=== PATIENT | male | born 1990 | race Two or more races ===

== ENCOUNTER 2016-12-07 17:50 | Emergency (ER) | payer SELFPAY ==
[~2016-12-07] VITALS: Ht 165.1 cm; Wt 80.0 kg
[2016-12-07 18:25] VITALS: BP 119/79
[2016-12-07 20:03] LABS: BASOPHILS % 0.3 % (0.0-2.0); EOSINOPHILS % 0.9 % (0.0-5.0); HEMATOCRIT. 44.4 % (42.0-52.0); HEMOGLOBIN. 15.8 g/dL (14.0-18.0); LYMPHOCYTES % 8.9 % (20.0-50.0); MEAN CORPUSCULAR HEMOGLOBIN 30.7 pg (28.0-32.0); MEAN CORPUSCULAR VOLUME 86.2 fL (80.0-94.0); MEAN PLATELET VOLUME 7.4 fl (7.4-10.4); MONOCYTES % 6.8 % (2.0-8.0); NEUTROPHILS % 83.1 % (40.0-76.0); PLATELET 271 x1000/uL (130-400); RED BLOOD CELL COUNT 5.15 mill/uL (4.7-6.1); RED CELL DISTRIBUTION WIDTH 12.7 % (11.6-14.6)
[2016-12-07 20:15] LABS: CHLORIDE 102 mEq/L (98-107)
[2016-12-07 20:18] LABS: CARBON DIOXIDE 29 mEq/L (21-32)
[2016-12-07 20:20] LABS: ETHANOL BLOOD < 10 mg/dL
[2016-12-07 21:13] LABS: *AMPHETAMINES SCREEN URINE PRESUMTIVE POSITIVE (NEGATIVE); *BARBITURATES SCREEN URINE NEGATIVE (NEGATIVE); *BENZODIAZEPINES SCREEN URINE NEGATIVE (NEGATIVE); *COCAINE SCREEN URINE PRESUMTIVE POSITIVE (NEGATIVE); CANNABINOID URINE SCREEN PRESUMTIVE POSITIVE (NEGATIVE); METHADONE URINE SCREEN NEGATIVE (NEGATIVE); OPIATES URINE SCREEN NEGATIVE (NEGATIVE); PHENCYCLIDINE URINE SCREEN NEGATIVE (NEGATIVE)
== END 2016-12-07 22:30 | disposition home or self-care (01) ==
LOC: ER 18:03
DX: S20.219A Contusion of unspecified front wall of thorax, initial encounter (principal); F19.10 Other psychoactive substance abuse, uncomplicated; V43.52XA Car driver injured in collision with other type car in traffic accident, initial encounter; Y93.89 Activity, other specified; Y92.411 Interstate highway as the place of occurrence of the external cause; Y99.8 Other external cause status
CPT/HCPCS: 36415; 71250; 80048; 80305; 85025; 99285; G0482